=== PATIENT | female | born 1980 | race Caucasian/White ===

== ENCOUNTER 2021-11-15 09:40 | Emergency (ER) | payer OTHER, SELFPAY ==
--- NOTE | ~2021-11-15 | XR_ITS ---
EXAMINATION: XR chest 2V EXAM DATE: 11/15/2021 12:34 INDICATION: Chest pain. TECHNIQUE: Frontal and lateral projections of the chest obtained and reviewed. There is no prior jose c dy for comparison. FINDINGS: The lungs are clear. There are no pleural effusions. The cardiomediastinal silhouette is within normal limits. There is no pneumothorax suspected. The bones and soft tissues are unremarkab le. IMPRESSION: No acute cardiopulmonary findings. Reviewed, dictated and finalized at location B.
--- NOTE | 2021-11-15 09:43 | ECG_ITS ---
Measurements Intervals [place] Rate: 103 P: 41 MI: 148 QRS: 60 QRSD: 75 T: 48 QT: 351 QTc: 461 Interpretive Statements SINUS TACHYCARDIA POOR R-WAVE PROGRESSION LOW QRS VOLTAGE ABNORMAL ECG NO PREVIOUS ECG AVAILABLE FOR COMPARISON Electronically Signed On 11-15-2021 17:23:44 CDT by Radhames Vang M.D.
[2021-11-15 10:03] VITALS: BP 137/71; PULSE 88; RESP 20; TEMP 36.5; O2SAT 100
[2021-11-15 10:28] LABS: Basophils Percent Auto 0.5 % (0.2-1.2); Eosinophils Absolute Auto 0.1 K/mm3 (0-0.3); Hematocrit 40.8 % (37.0-47.0); Hemoglobin 12.9 g/dL (12.0-15.0); Immature Granulocyte Absolute 0.02 K/mm3 (0.00-0.031); Immature Granulocyte Percent A 0.3 % (0-0.5); Lymphocytes Absolute Auto 2.19 K/mm3 (0.9-3.2); Lymphocytes Percent Auto 33.5 % (18.3-44.2); Mean Corpuscular HGB Conc 31.6 g/dl (32-36); Mean Corpuscular Hemoglobin 29.9 pg (26-34); Mean Corpuscular Volume 94.4 fl (80-100); Mean Platelet Volume 10.6 fl (7.4-10.4); Monocytes Absolute Auto 0.7 K/mm3 (0.1-0.6); Monocytes Percent Auto 10.2 % (2.6-8.5); Neutrophils Absolute Auto 3.5 K/mm3 (1.3-6.7); Neutrophils Percent Auto 53.5 % (45.5-73.1); Platelet Count Result 275 k/mm3 (150-375); Red Blood Count 4.32 M/mm3 (4.2-5.4); White Blood Count 6.5 K/mm3 (4.5-10.0)
[2021-11-15 10:39] LABS: Alanine Aminotransferase 21 U/L (4-35); Albumin Level 4.7 g/dL (3.5-5.1); Alkaline Phosphatase 120 U/L (38-126); Anion Gap 8 mmol/L (8-16); Aspartate Amino Transferase 23 U/L (14-36); Bilirubin,Total 0.5 mg/dL (0.2-1.3); Blood Urea Nitrogen 13 mg/dL (7-17); Calcium 9.5 mg/dL (8.4-10.2); Carbon Dioxide 28 mmol/L (22-30); Chloride 104 mmol/L (98-107); Estimated CRCL calculation 103 ml/min; Estimated Glomerular Filt Rate > 60; Glucose 112 mg/dL (65-110); Lipase 135 U/L (23-300); Potassium 4.9 mmol/L (3.4-5.0); Prothrombin Time 13.1 Seconds (11.1-14.7); Sodium 140 mmol/L (137-145)
[2021-11-15 10:40] LABS: Partial Thromboplastin Time 26.9 SECONDS (22.3-36.8)
[2021-11-15 10:49] LABS: Troponin I < 0.012 ng/mL (0.000-0.034)
[2021-11-15 11:13] VITALS: PULSE 75; RESP 20; O2SAT 100
[2021-11-15 11:15] VITALS: PULSE 79; RESP 12; O2SAT 100
[2021-11-15 11:16] VITALS: BP 118/89; PULSE 80; RESP 19; O2SAT 100
[2021-11-15 11:30] VITALS: PULSE 85; RESP 17; O2SAT 100
[2021-11-15 11:45] VITALS: PULSE 71; RESP 14; O2SAT 100
--- NOTE | 2021-11-15 11:49 | ED.CHESTPAIN ---
HPI - Chest Pain General Chief Complaint: Chest Pain Stated Complaint: chest pain Time Seen by Provider: 11/15/21 11:14 History of Present Illness HPI narrative: 41-year-old female presents emergency room with complaints of left anterior chest wall pain that she has had intermittently since yesterday. Patient states pain is worse with inspiration and with movement. Patient denies shortness of breath, dizziness, nausea, fever. Patient states that she took Tylenol yesterday with no relief of symptoms. Related Data Allergies Allergy/AdvReac Type Severity Reaction Status Date / Time No Known Allergies Allergy Verified 11/15/21 11:39 Review of Systems Review of Systems: CONSTITUTIONAL: Denies fever, chills, or sweats. EYES: Denies visual changes, redness, or discharge. ENT: Denies rhinorrhea, congestion, sore throat, or otalgia. CARDIOVASCULAR: Reports chest wall pain. no palpitations, or edema. RESPIRATORY: Denies cough or dyspnea. GASTROINTESTINAL: Denies abdominal pain, nausea, vomiting, or diarrhea. GENITOURINARY: Denies dysuria or hematuria. SKIN: Denies rash or itching. MUSCULOSKELETAL: Denies back pain, joint pain, or myalgia. NEUROLOGIC: Denies headache, numbness, dizziness, or weakness. PSYCHIATRIC: Denies anxiety or depression. Exam Narrative: GENERAL: Well-appearing, well-nourished, and in no acute distress. HEAD: Normocephalic, atraumatic. EYES: PERRLA and EOMI. ENT: Nares clear, no rhinorrhea or epistaxis. Mucous membranes moist. CHEST: Clear to auscultation. No respiratory distress. No wheezes rales or rhonchi left anterior costochondral tenderness HEART: Regular rate and rhythm. No murmur heard. Normal peripheral pulses. ABDOMEN: Soft, nontender, nondistended, normal active bowel sounds. EXTREMITIES: Normal range of motion. No edema. SKIN: Warm, dry, no rash. NEURO: No focal deficits. Alert and oriented x3. PSYCH: Normal mood and affect. Course Vital Signs Vital signs: Vital Signs Temperature 36.5 C 11/15/21 10:03 Pulse Rate 88 11/15/21 10:03 Respiratory Rate 20 11/15/21 10:03 Blood Pressure 137/71 11/15/21 10:03 Pulse Oximetry 100 11/15/21 10:03 Temperature 36.5 C 11/15/21 10:03 Pulse Rate 88 11/15/21 10:03 Respiratory Rate 20 11/15/21 10:03 Blood Pressure 137/71 11/15/21 10:03 Pulse Oximetry 100 11/15/21 10:03 MDM - Chest Pain MDM Narrative Medical decision making narrative: 41-year-old female presented to emergency room with complaints of intermittent left anterior chest wall pain, that was worse with movement and inspiration. Patient has no cardiac history. CBC CMP and troponin were unremarkable. Chest x-ray showed no acute abnormalities. EKG normal sinus rhythm. Discussed with patient that her symptoms are probably related to costochondral pain. we will send patient home with prescription for anti-inflammatories Lab Data Attestation: I reviewed the patient's lab results. Result diagrams: 11/15/21 10:11 11/15/21 10:11 Labs: Lab Results 11/15/21 11/15/21 11/15/21 Range/Units 10:11 10:11 10:11 WBC 6.5 (4.5-10.0) K/mm3 RBC 4.32 (4.2-5.4) M/mm3 Hgb 12.9 (12.0-15.0) g/dL Hct 40.8 (37.0-47.0) % MCV 94.4 (80-100) fl MCH 29.9 (26-34) pg MCHC 31.6 L (32-36) g/dl RDW 13.0 (11.5-14.5) % Plt Count 275 (150-375) k/mm3 MPV 10.6 H (7.4-10.4) fl Immature Gran % (Auto) 0.3 (0-0.5) % Neut % (Auto) 53.5 (45.5-73.1) % Lymph % (Auto) 33.5 (18.3-44.2) % [place] % (Auto) 10.2 H (2.6-8.5) % Eos % (Auto) 2.0 (0-4.4) % Baso % (Auto) 0.5 (0.2-1.2) % Lymph # (Auto) 2.19 (0.9-3.2) K/mm3 [place] # (Auto) 0.7 H (0.1-0.6) K/mm3 Eos # (Auto) 0.1 (0-0.3) K/mm3 Baso # (Auto) 0.0 (0.0-0.1) K/mm3 Abs Immat Gran (auto) 0.02 (0.00-0.031) K/mm3 Absolute Neuts (auto) 3.5 (1.3-6.7) K/mm3 Absolute Nucleated RBC 0.0 (0.0-0.012) K/mm3 Nucleated RBC %
== END 2021-11-15 12:28 | disposition home or self-care (01) ==
PROVIDERS: Emergency Medicine; Emergency Provider Nurse Practitioner Family
DX: M94.0 Chondrocostal junction syndrome [Tietze] (principal); R00.0 Tachycardia, unspecified
CPT/HCPCS: 36415; 71046; 80053; 83690; 84484; 85025; 85610; 85730; 93005; 99283